=== PATIENT | female | born 1990 | race Caucasian/White ===

== ENCOUNTER 2023-03-22 14:50 | Emergency (ER) | payer BC, SELFPAY ==
[2023-03-22 14:54] VITALS: BP 134/107; PULSE 100; RESP 16; TEMP 37.1; O2SAT 99; BMI 28.2
--- NOTE | 2023-03-22 15:44 | ED_ITS ---
HPI - Extremity Injury (Upper) General Chief Complaint: Extremity Injury, Upper Stated Complaint: CUT FINGER ON L HAND-BLEEDING/WRAPPED IN TOWEL Time Seen by Provider: 03/22/23 15:22 Source: patient and family Mode of arrival: walk-in History of Present Illness HPI narrative: patient is a 32-year-old female presents to the emergency department for the evaluation of a laceration to the left index finger that occurred with gardening tonio just prior to arrival while the patient was making crafts. She is right- hand dominant. Bleeding is well-controlled. She had no other associated injuries. She has no concern for . Related Data Allergies Allergy/AdvReac Type Severity Reaction Status Date / Time No Known Drug Allergies Allergy Verified 03/22/23 14:56 Review of Systems ROS Constitutional Denies: fever or chills Ears, nose, mouth, and throat Denies: neck pain Cardiovascular Denies: chest pain Respiratory Denies: shortness of breath or cough Gastrointestinal Denies: nausea or vomiting Musculoskeletal Denies: back pain Integumentary/Breast Denies: rash Neurological Denies: headache Hematologic/Lymphatic Denies: easy bruising PFSH PFSH Social History Smoking status: Never smoker Exam Narrative Exam Narrative: Gen.: Awake, alert, in no distress Head: Normocephalic, atraumatic ENT: Moist mucous membranes Respiratory: No respiratory distress Extremities: Moves extremities equally, 2 cm superficial V-shaped skin flap laceration at the base of the proximal phalanx, palmar aspect of the left index finger. Minimal venous oozing with no active bleeding. Subcutaneous tissue is visualized intact underneath the skin flap laceration, there is no laceration through the subcutaneous tissue with no tendon or bony exposure. Normal flexion and extension at the DIP and PIP joints as well as the MCP joint. Psych: Normal mood and affect Neuro: No focal neuro deficit Skin: Warm, dry Constitutional Vital Signs, click to edit/add: Last Vital Signs Temp 98.7 F 03/22/23 14:54 Pulse 100 H 03/22/23 14:54 Resp 16 03/22/23 14:54 BP 134/107 H 03/22/23 14:54 Pulse Ox 99 03/22/23 14:54 O2 Del Method Room Air 03/22/23 14:54 Course Vital Signs Vital signs: Vital Signs Temperature 98.7 F 03/22/23 14:54 Pulse Rate 100 H 03/22/23 14:54 Respiratory Rate 16 03/22/23 14:54 Blood Pressure 134/107 H 03/22/23 14:54 Pulse Oximetry 99 03/22/23 14:54 Oxygen Delivery Method Room Air 03/22/23 14:54 Temperature 98.7 F 03/22/23 14:54 Pulse Rate 100 H 03/22/23 14:54 Respiratory Rate 16 03/22/23 14:54 Blood Pressure 134/107 H 03/22/23 14:54 Pulse Oximetry 99 03/22/23 14:54 Oxygen Delivery Method Room Air 03/22/23 14:54 MDM - Extremity Injury (Upper) MDM Narrative Medical decision making narrative: tetanus is up-to-date. Laceration was repaired without difficulty. Please see procedure note for details. sutures removed in 7-10 days with PCP. Return to the Emergency Room if symptoms change or worsen. Wound care discussed at bedside. Laceration repair: Done under sterile conditions. The use of Hiba-Clens prep the area. Local injection with lidocaine 1% was used, approximately3 cc. The wound was irrigated copiously with normal saline. The wound was explored there was no evidence of foreign material. The laceration was approximated with 3-0 nylon. 3 simple interrupted sutures were placed. Patient tolerated the procedure well. The patient was neurovascularly intact post. the patient had bacitracin applied to the laceration and a dry sterile dressing was place. The patient will need to follow-up in the next 7-10 days for removal Medical Records Attestation: I reviewed the patient's medical records. Discharge Plan Discharge Chief Complaint: Extremity Injury, Upper Clinical Impression: Finger laceration Patient Disposition: Home, Self-Care Time of Disposition Decision: 15:43 Condition: Good Instructions: Finger Laceration (ED) Additional Instructions: Sutures removed in 7-10 days with your doctor Stand Alone Forms: Portal Instructions Referrals: LANCE ESQUIVEL [Primary Care Provider] - 1 week Discharge Date/Time: 03/22/23 15:58
== END 2023-03-22 15:58 | disposition home or self-care (01) ==
PROVIDERS: Emergency Provider Emergency Medicine; PCP Nurse Practitioner Family
DX: S61.211A Laceration without foreign body of left index finger without damage to nail, initial encounter (principal); W26.8XXA Contact with other sharp object(s), not elsewhere classified, initial encounter
CPT/HCPCS: 12001; 99282